=== PATIENT | female | born 1965 | race Caucasian/White ===

== ENCOUNTER 2017-05-06 14:00 | Outpatient (RCR) | payer BC, SELFPAY ==
--- NOTE | 2017-04-06 17:15 | HP.OTEVAL ---
Patient's Visit Information COLIN EDWARDS is a 51 year old F, referred to Occupational Therapy by TAMIKO Galindo,, with a diagnosis of Unil primary osteoarthritis of 1st carpometacarp joint right hand. Date of Evaluation: 03/19/17 Occupational Therapist: Zulma Nieto, YONI/Sudhir, CHT - Subjective Subjective: Pt arrives for inital OT evmn following a right CMC joint arthroplasty in Feb. - pt arrives today following her soft cast removal for initiation of CMC arthroplasty protocol and custom orthosis. Pt is hopeful she can return to work at [employer] by the end of april-pt just completed therapy for her left CMC arthroplasty. 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 with dressing/bathing and other daily occupations by d/c Goal:: pt will report no pain greater than 2/10 with use of right hand for daily occupatons, home mtg and driving by d/c Goal:: pt will demo understanding of joint protection and ad. eq to use for daily occupations to increase pts ind wiith all BADLS and IADLs by d/c Goal:: pt will demo correct donning/doffing of orthosis by end of 1st session - Rehabilitation General Assessment: Pt demo with healing incisions-limited ROM and strength due to undergoing a right CMC arthroplasty- Due to protocol pt is limited with use and will follow CMC protocol and initiate ROM today and strengtheing at 8 weeks s/p. Rehabilitation Potential: Good - Anticipated Interventions Anticipated Interventions: Early Active Motion, A/AAROM/PROM, Strengthening, Scar Care, Triggerpoint Release, Modalities, Orthoses, Joint Protection/Energy Conservation - Visit Plan Frequency: 1-2x /Week Duration: 6 Weeks General Plan: will initiate OT 1-2x week for 6 weeks ROM - scar mtg- orthosis use and progress with cmc arthroplasty protocol initiate strengthening of door to door lead generation at 8 weeks and pinch TEXT: Thank you for the opportunity to evaluate your patient. For Medicare and Medicare HMO plans, please review the plan of care and approve it. It will need to be FAXED BACK to us at [phone] for Medicare purposes. Please let me know if there are questions or concerns regarding this plan of care. Physician Signature: Date:
--- NOTE | 2017-08-05 09:41 | HP.OT.NRP ---
HP - Discharge Summary - Patient Information COLIN EDWARDS was seen in my office for initial evaluation on 03/19/17. The following Plan of Care was established for this patient: Initial Frequency: 1-2x /Week Initial Duration: 6 Weeks Plan: cont with following protcol - Anticipated Interventions Anticipated Interventions: Early Active Motion, A/AAROM/PROM, Strengthening, Scar Care, Triggerpoint Release, Modalities, Orthoses, Joint Protection/Energy Conservation This patient was last seen in our office 04/14/17. Pertinent comments regarding their Occupational therapy will appear below: pt was seen in OT for 9 visits. 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 pt was also demo functional ROM. pt has not scheduled any further apts at this time and is D/C At this point I will be discontinuing this patient from occupational therapy. I would be happy to see this patient again in the future if found appropriate by the physician. Thank you! Zulma Nieto, OTR/L, CHT
== END 2017-05-06 19:00 | disposition home or self-care (01) ==
LOC: OT 14:00
PROVIDERS: Family Provider Family Medicine; PCP Family Medicine; Visit Provider Physician Assistant Surgical
DX: M18.11 Unilateral primary osteoarthritis of first carpometacarpal joint, right hand (principal)
CPT/HCPCS: 97018; 97110; 97140; 97166; 97760